=== PATIENT | male | born 1995 | race Caucasian/White ===

== ENCOUNTER 2021-08-06 16:14 | Inpatient (IN) | payer OTHER ==
[~2021-08-06] VITALS: Ht 175.3 cm; Wt 77.1 kg
[2021-08-24] MEDS ORDERED: INTESTINEX680 M1 PO (07:53)
[2021-08-24] MEDS ORDERED: METRONIDAZOLE500 MG PO (07:54)
[2021-08-24] MEDS ORDERED: CIPRO500 MG PO (07:54)
== END 2021-08-24 13:16 | disposition home or self-care (01) | DRG 393 ==
LOC: ER 16:14 → MEDJ 08-07 14:44 → SURH 08-07 14:44 → MEDJ 08-07 15:47 → SURG 08-20 13:29
PROVIDERS: ADMIT Surgery; ATTEND Surgery
PROC: BW2110Z Computerized Tomography (CT Scan) of Abdomen and Pelvis using Low Osmolar Contrast, Unenhanced and Enhanced (ICD-10-PCS; 2021-08-07)
PROC: 4A033R1 Measurement of Arterial Saturation, Peripheral, Percutaneous Approach (ICD-10-PCS; 2021-08-07)
PROC: 0W9J30Z Drainage of Pelvic Cavity with Drainage Device, Percutaneous Approach (ICD-10-PCS; principal; 2021-08-09)
PROC: 8E0ZXY6 Isolation (ICD-10-PCS; 2021-08-09)
PROC: 05HY33Z Insertion of Infusion Device into Upper Vein, Percutaneous Approach (ICD-10-PCS; 2021-08-10)
PROC: BW2110Z Computerized Tomography (CT Scan) of Abdomen and Pelvis using Low Osmolar Contrast, Unenhanced and Enhanced (ICD-10-PCS; 2021-08-16)
PROC: BW2110Z Computerized Tomography (CT Scan) of Abdomen and Pelvis using Low Osmolar Contrast, Unenhanced and Enhanced (ICD-10-PCS; 2021-08-23)
DX: K61.0 Anal abscess (principal); K65.1 Peritoneal abscess; U07.1 COVID-19; K63.1 Perforation of intestine (nontraumatic); N39.0 Urinary tract infection, site not specified; K50.114 Crohn's disease of large intestine with abscess; K52.89 Other specified noninfective gastroenteritis and colitis; K62.89 Other specified diseases of anus and rectum; Z20.822 Contact with and (suspected) exposure to COVID-19; B96.4 Proteus (mirabilis) (morganii) as the cause of diseases classified elsewhere; B96.29 Other Escherichia coli [E. coli] as the cause of diseases classified elsewhere; B95.2 Enterococcus as the cause of diseases classified elsewhere

== ENCOUNTER 2021-09-21 08:27 | Outpatient (CLI) | payer OTHER ==
[~2021-09-21 08:27] MED LIST: CIPRO500 MG PO; INTESTINEX680 M1 PO; METRONIDAZOLE500 MG PO
== END 2021-09-21 08:30 | disposition home or self-care (01) ==
LOC: TOM 08:27
PROVIDERS: ATTEND Surgery
DX: K60.5 Anorectal fistula (principal); K50.014 Crohn's disease of small intestine with abscess